=== PATIENT | male | born 1985 | race Caucasian/White ===

== ENCOUNTER 2017-04-07 10:53 | Emergency (ER) | payer SELFPAY ==
[~2017-04-07] VITALS: Ht 180.3 cm; Wt 81.0 kg
[2017-04-07 10:59] VITALS: BP 123/73
[2017-04-07] MEDS ORDERED: CARB200T PO (11:29)
[2017-04-07] MEDS ORDERED: PARO30TA45 PO (11:29)
[2017-04-07] MEDS ORDERED: LAMO25TA5 PO (11:29)
[2017-04-07] MEDS ORDERED: CLON-365 PO (11:29)
[2017-04-07] MEDS ORDERED: TRAZ100T15 PO (11:29)
[2017-04-07] MEDS ORDERED: IBUPROFEN 200 MG TABLET PO ONE (11:30)
[2017-04-07] MEDS ORDERED: CEPHALEXIN 500 MG CAPSULE PO ONE (11:30)
[2017-04-07] MEDS ORDERED: BACITRACIN ZINC OINT 500U/GM, 0.9 GM ONE (11:31)
[2017-04-07] MEDS ORDERED: CEPHALEXIN 500 MG CAPSULE ONE (11:35)
[2017-04-07] MEDS ORDERED: IBUPROFEN 200 MG TABLET ONE (11:35)
== END 2017-04-07 11:53 | disposition home or self-care (01) ==
LOC: ED 11:47
DX: L03.116 Cellulitis of left lower limb (principal); L03.115 Cellulitis of right lower limb; R23.4 Changes in skin texture
CPT/HCPCS: 99283